=== PATIENT | male | born 1945 | race Caucasian/White ===

== ENCOUNTER → 2016-08-01 | Outpatient (CLI) | payer OTHER ==
[~2016-08-01] MED LIST: ANDROGEL1.62% TOP; ASPIRIN 81M81 MG/TA2 PO; B-121000 MCG PO; CAPSAICIN0.025% TOP; CENTRUM SILVER1 TAB PO; DESYREL 50MG50 MG PO; EFFEXOR 3737.5 MG/TA PO; FERROUS GL325 MG/TAB PO; GLUCOPHAGE1000 MG PO; LANTUS100 U/ML SQ; LIPITOR 10MG10 MG PO; LYRICA 75MG CAP75 MG PO; MINIPRESS2 MG PO; NIACIN 100100 MG/TAB PO; NIACIN FLUSH F400 MG PO; NITROSTAT0.4 MG/TAB SL; NIZORAL SHAMPO120 M1 TP; NORVASC 10MG10 MG PO; NOVOLOG 100U100 U/M1 SQ; PHARMASSURE MA500 MG PO; PROTONIX 40MG T40 MG PO; TOPROL XL 25MG25 MG PO; UROXATRAL10 M1 PO; VITAMIN D 1001000 IU PO; VITAMINC1000TA PO; ZYRTEC 10MG10 MG PO
== END ==
LOC: COL.RAD 07:24
DX: J32.8 Other chronic sinusitis (principal); M50.022 Cervical disc disorder at C5-C6 level with myelopathy; M25.78 Osteophyte, vertebrae; R26.89 Other abnormalities of gait and mobility; Z87.828 Personal history of other (healed) physical injury and trauma

== ENCOUNTER → 2016-10-16 | Outpatient (CLI) | payer OTHER ==
[~2016-10-16] VITALS: Ht 175.3 cm; Wt 98.7 kg
[2016-10-16 11:19] VITALS: BP 126/83; PULSE 79
[2016-10-16 12:06] VITALS: BP 143/80; PULSE 104
[2016-10-16 12:08] VITALS: BP 146/80; PULSE 91
[2016-10-16 12:09] VITALS: BP 131/77; PULSE 89
== END ==
LOC: COL.CARD 10:41
DX: Z01.818 Encounter for other preprocedural examination (principal); I25.10 Atherosclerotic heart disease of native coronary artery without angina pectoris
CPT/HCPCS: A9502; J2785

== ENCOUNTER 2019-03-30 12:09 | Emergency (ER) | payer OTHER ==
[~2019-03-30] VITALS: Ht 172.7 cm; Wt 96.4 kg
[2019-03-30 12:17] VITALS: BP 137/61
[2019-03-30] MEDS ORDERED: METOZOLV ODT10 MG (12:34)
[2019-03-30 13:24] VITALS: PULSE 81; TEMP 98.2
== END 2019-03-30 13:25 | disposition home or self-care (01) ==
LOC: COL.ER 12:09
DX: S61.411A Laceration without foreign body of right hand, initial encounter (principal); I10 Essential (primary) hypertension; E11.9 Type 2 diabetes mellitus without complications; Z88.0 Allergy status to penicillin; Z88.8 Allergy status to other drugs, medicaments and biological substances; Z79.82 Long term (current) use of aspirin; Z79.4 Long term (current) use of insulin; W25.XXXA Contact with sharp glass, initial encounter

== ENCOUNTER → 2019-04-10 | Outpatient (CLI) | payer OTHER ==
[~2019-04-10] MED LIST changes: +METOZOLV ODT10 MG
[2019-04-10 11:40] VITALS: BP 119/74; PULSE 97; TEMP 96.9
== END ==
LOC: COL.ER 11:20
DX: S61.411D Laceration without foreign body of right hand, subsequent encounter (principal); X58.XXXD Exposure to other specified factors, subsequent encounter

== ENCOUNTER 2019-08-29 21:04 | Emergency (ER) | payer OTHER ==
[~2019-08-29] VITALS: Ht 175.3 cm; Wt 88.2 kg
[2019-08-29 21:08] VITALS: TEMP 97.5
[2019-08-29 23:25] VITALS: BP 154/83; PULSE 89
== END 2019-08-29 23:24 | disposition home or self-care (01) ==
LOC: COL.ER 21:04
DX: T49.6X1A Poisoning by otorhinolaryngological drugs and preparations, accidental (unintentional), initial encounter (principal); T26.12XA Burn of cornea and conjunctival sac, left eye, initial encounter; S05.02XA Injury of conjunctiva and corneal abrasion without foreign body, left eye, initial encounter; E11.9 Type 2 diabetes mellitus without complications; I10 Essential (primary) hypertension; F43.10 Post-traumatic stress disorder, unspecified; Z79.4 Long term (current) use of insulin; Z79.82 Long term (current) use of aspirin
CPT/HCPCS: J7040

== ENCOUNTER 2020-09-01 14:20 | Emergency (ER) | payer OTHER ==
[~2020-09-01] VITALS: Ht 175.3 cm; Wt 88.2 kg
[2020-09-01 14:30] VITALS: TEMP 97.8
[2020-09-01 15:28] LABS: BASO % 0.4 % (0.0-2.0); EOS # 0.1 (0.0-0.7); EOS % 1.3 % (0-4.0); GRAN # 3.3 (1.4-6.5); HEMATOCRIT 41.9 % (42.0-52.0); HEMOGLOBIN 14.4 g/dl (13.5-18.0); LYMPH # 1.5 (1.2-3.4); LYMPH % 26.5 % (20.0-51.0); MEAN CELL VOLUME 87 fl (80.0-100.0); MEAN CORPUSCULAR HEMOGLOBIN 30 pg (27.0-31.0); MEAN CORPUSCULAR HGB CONC 34 g/dl (33.0-37.0); MEAN PLATELET VOLUME 12.1 fl (7.4-10.4); MONO # 0.6 (0.1-0.6); MONO % 11.3 % (1.7-9.3); PLATELET COUNT 190 K/mm3 (130-400); RED BLOOD COUNT 4.83 M/mm3 (4.20-5.60); REDCELL DISTRIBUTION WIDTH-CV 12.7 % (11.5-14.5)
[2020-09-01 15:41] LABS: ALBUMIN 4.2 gm/dL (3.5-5.0); BILIRUBIN,TOTAL 0.5 mg/dL (0.0-1.0); CALCIUM 9.6 mg/dL (8.4-10.2); CREATININE, serum 0.73 (0.66-1.25); POTASSIUM 4.9 mmol/L (3.4-5.0); TOTAL PROTEIN 8.2 gm/dL (6.4-8.2)
[2020-09-01 15:52] LABS: TROPONIN-I 0.012 ng/mL (0.000-0.035)
[2020-09-01 19:20] VITALS: BP 132/82; PULSE 84
== END 2020-09-01 19:30 | disposition home or self-care (01) ==
LOC: COL.ER 14:20
PROVIDERS: Emergency Medicine
DX: R07.89 Other chest pain (principal); I25.10 Atherosclerotic heart disease of native coronary artery without angina pectoris; I10 Essential (primary) hypertension; E11.9 Type 2 diabetes mellitus without complications; Z88.0 Allergy status to penicillin; Z88.8 Allergy status to other drugs, medicaments and biological substances; Z88.6 Allergy status to analgesic agent; Z79.82 Long term (current) use of aspirin; Z79.4 Long term (current) use of insulin

== ENCOUNTER 2023-05-10 08:30 | Outpatient (RCR) | payer OTHER ==
[~2023-05-10 08:30] MED LIST changes: +DETROL LA4 PO; +EFFEXOR-XR150 MG PO; +FLOMAX 0.40.4 MG/CAP PO; +INSULIN GL100 UNIT/2 SQ; +IRON TABLETS325 MG PO; +LIDO4; +LIPITOR20 MG PO; +LOPRESSOR 225 MG/TAB PO; +MAG-OX 400400 MG/TAB PO; +MOBIC15 MG PO; +PERIACTIN 4MG TA4 MG PO; +PROSCAR 5MG5 MG PO; +REMERON 15M15 MG/TA1 PO; +VICTOZA6 MG/ML SQ
== END 2023-05-12 | disposition home or self-care (01) ==
LOC: WSOT
DX: M19.032 Primary osteoarthritis, left wrist (principal)

== ENCOUNTER 2023-05-27 09:00 | Outpatient (RCR) | payer OTHER | END 2023-06-12 | disposition home or self-care (01) | LOC: WSOT | DX: M25.532 Pain in left wrist (principal) ==

== ENCOUNTER 2023-09-02 13:12 | Inpatient (IN) | payer MEDICARE, OTHER ==
[~2023-09-02] VITALS: Ht 175.3 cm; Wt 81.3 kg
[2023-09-02 15:35] VITALS: BP 137/79; PULSE 73; TEMP 97.7
[2023-09-02] MEDS ORDERED: LOVENOX 4040 MG/0.4 SQ (15:36)
[2023-09-02] MEDS ORDERED: HUMALOG PEN100 U/ML SQ (15:39)
[2023-09-02] MEDS ORDERED: SENNA-LAX8.6 MG PO (15:40)
[2023-09-02] MEDS ORDERED: Acetaminophen 325 MG TAB PO PRN (15:45)
[2023-09-02] MEDS ORDERED: Naloxone 0.4 MG/ML VIAL IV PRN (15:45)
[2023-09-02] MEDS ORDERED: Polyethylene Glycol 3350 17 GM PDS PO PRN (15:45)
[2023-09-02] MEDS ORDERED: TYLENOL 500MG500 MG PO (15:45)
[2023-09-02] MEDS ORDERED: Docusate Sodium 100 MG CAP PO PRN (15:45)
[2023-09-02] MEDS ORDERED: Sennosides/Docusate 8.6-50 MG TAB PO PRN (15:45)
[2023-09-02] MEDS ORDERED: ASPIRIN E.C. 8181 MG PO (15:46)
[2023-09-02] MEDS ORDERED: TEMOVATE0.05% TP (15:48)
[2023-09-02] MEDS ORDERED: FLEXERIL 1010 MG/TAB PO (15:49)
[2023-09-02] MEDS ORDERED: VOLTAREN GEL 1%1 TU TP (15:52)
[2023-09-02] MEDS ORDERED: BENADRYL25 M2 PO (15:53)
[2023-09-02] MEDS ORDERED: EUCERIN1 CRE TOP (15:54)
[2023-09-02] MEDS ORDERED: PEPCID 20MG TAB20 MG PO (15:56)
[2023-09-02] MEDS ORDERED: CVS GLUCOSE BIT1 CTB (15:58)
[2023-09-02] MEDS ORDERED: NORCO 325 MG-51 TAB PO (15:59)
[2023-09-02] MEDS ORDERED: VITAMIN B12 781 TAB PO (16:06)
[2023-09-02 16:12] VITALS: BP_SYST 137
[2023-09-02] MEDS ORDERED: diphenhydrAMINE 25 MG CAP PO PRN (16:45)
[2023-09-02] MEDS ORDERED: Cyclobenzaprine 10 MG TAB PO PRN (16:45)
[2023-09-02] MEDS ORDERED: Glucagon 1 MG VIAL IM PRN (17:00)
[2023-09-02] MEDS ORDERED: Insulin Lispro (HumaLOG) SQ SCH ×2 (17:00)
[2023-09-02] MEDS ORDERED: Dextrose 50% Water 25 GM/50 ML SYRINGE IV PRN (17:00)
[2023-09-02] MEDS ORDERED: Dextrose (Glucose) 15 GM (4 x 3.75 GM) Chewable TABLET PACK PO PRN (17:00)
--- NOTE | 2023-09-02 19:30 | NUR ---
report received from asha luna. pt resting in bed watching tv. pt denies pain. fall precautions in place. call light in reach. all needs met at this time.
[2023-09-02] MEDS ORDERED: Metoprolol Tartrate 25 MG TAB PO SCH (21:00)
[2023-09-02] MEDS ORDERED: CLOBETASOL 0.05% TP PRN (21:00)
[2023-09-02] MEDS ORDERED: Atorvastatin 20 MG TAB PO SCH (21:00)
[2023-09-02] MEDS ORDERED: metFORMIN 500 MG TAB PO SCH (21:00)
[2023-09-02] MEDS ORDERED: Cyproheptadine 4 MG TAB PO PRN (21:00)
[2023-09-02] MEDS ORDERED: Magnesium Oxide 400 MG TAB PO SCH (21:00)
[2023-09-02] MEDS ORDERED: Insulin Glargine-ygfn (Lantus) SQ SCH (21:00)
--- NOTE | 2023-09-02 21:08 | NUR ---
shift assessment complete, see documentation. pt tolerated hs meds well. pt assisted in bedtime routine. fall precautions in place. call light in reach. all needs met at this time.
[2023-09-02 21:10] VITALS: BP_SYST 137
[2023-09-03 01:02] VITALS: BP_SYST 137
[2023-09-03 05:34] VITALS: BP 151/88; PULSE 100; TEMP 98.1
--- NOTE | 2023-09-03 08:37 | NUR ---
PT SITTING ON EDGE OF BED, EATING BREAKFAST, ALERT AND ORIENTEDX4. RATES PAIN 7/10 WHEN UP AND WALKING. REQUESTED PAIN PILL BEFORE THERAPY STARTS. PT GOT UP TO BATHROOM AND HAD A SMALL BOWEL MOVEMNET BUT STILL FEELS CONSTIPATED. GAVE MIRALAX AND STOOL SOFTNER.ASSESSED PT AND GAVE MORNING MEDS. CALL LIGHT WITHIN REACH.
[2023-09-03] MEDS ORDERED: Cyanocobalamin (Vit B-12) 1,000 MCG TAB PO SCH (09:00)
[2023-09-03] MEDS ORDERED: Ferrous Sulfate 325 MG TAB PO SCH (09:00)
--- NOTE | 2023-09-03 14:52 | NUR ---
Principal Examiner met with patient to complete discharge planning. Patient lying on his bed stating he's very tired and hot from completing his therapy today. Patient verified that he lives in [place] with his Roseanne ([phone]). He lists his son Lake ([phone]) as contact and states he relies on Lake a lot. Patient identified his and his son as DPOA. Patient goes to [facility] for medical care and is on Red Team. He uses [facility] and [facility] as needed. Pt has multiple DME: 5 canes, rollator walker, FWW, gripper, wheelchair and quad cane. Patient reports he has had many falls at home due to lack of balance. He states he stays busy working in the yard and helping to build decks. Patient states he has 2-4 steps into his home, with his house being a single story home. He has his office in his basement and is hopeful he will be able to access it soon. Discussed discharge recommendations at this time being home with HH. Patient stated he doesn't want to be home bound and would prefer OP therapy. [facility] Discharge plan: Home with OP therapy
[2023-09-03 18:37] VITALS: BP 138/79; PULSE 91; TEMP 98
--- NOTE | 2023-09-03 19:11 | NUR ---
report received from asha luna. pt resting in bed with at bedside. pt denies pain. fall precautions in place. call light in reach. all needs met at this time.
[2023-09-03 19:12] VITALS: BP_SYST 138
[2023-09-03] MEDS ORDERED: Finasteride 5 MG TAB PO SCH (21:00)
--- NOTE | 2023-09-04 00:07 | NUR ---
shift assessment complete, see documentation. pt tolerated hs meds well. pt denies pain. fall precautions in place. call light in reach. all needs met at this time.
[2023-09-04 05:33] VITALS: BP 147/84; PULSE 78; TEMP 97.7
[2023-09-04 07:00] VITALS: BP_SYST 147
--- NOTE | 2023-09-04 07:56 | NUR ---
Pt is sitting up in bed getting dressed with help of PCT. Pt is A&Ox4. VSS. S1S2. Clear lung sounds on RA. ABD is rounded, soft, non-tender with audible bowel sounds. Palpable pulses in all extremities with normal strength. Pt reports history of neuropathy. Pt reports pain in L hip 2/10 - sharp when moving. Pt requested pain meds prior to therapy this AM at 0815. Per Pt, pain escalates during therapy sessions. Pt denies headache, dizziness, n/v. pt ordered breakfast. No further needs at this time. Call light in reach and bed alarm on.
--- NOTE | 2023-09-04 10:53 | NUR ---
Pt reported mild ABD cramping. Per Pt, thinks cramps from eating breakfast too fast. Pt did not want anything at this time. told Pt to keep nurse informed if cramping continues. Pt understood.
--- NOTE | 2023-09-04 12:30 | NUR ---
Pt returned from PT session. Called for assistance to go to bathroom. Pt ambulated with walker and gait belt well. Pt had small BM. Pt reported urination was difficult to begin and small burning sensation when urinating. Pt stated the burning started earlier this AM. Set Pt up with lunch tray at side of bed. Call light in reach and bed alarm on.
--- NOTE | 2023-09-04 14:41 | NUR ---
SW attended team conference this morning. Met with patient to review notes of team conference and discuss upcoming discharge planned for 09/09. Reiterated need for patient to use walker when he is up to ensure safety. Discussed patient resuming OP physical therapy after discharge. SW called patient's to schedule family meeting. Scheduled meeting for Tuesday 09/05 at 0930. Discharge plan: home with OP therapy
--- NOTE | 2023-09-04 14:53 | NUR ---
Pt ambulated from bed to bathroom back to bed. Pt voided - clear, yellow urine. Pt denies pain. Family in room visiting. Pt laying in bed with call light in reach and bed alarm on.
[2023-09-04 17:00] VITALS: BP 124/76; PULSE 93; TEMP 98
--- NOTE | 2023-09-04 17:14 | NUR ---
Pt ambulated from bathroom to bed. Pt reporting burning while urinating. Pt states burning is only at beginning of stream then dies down. Pt states pain is present in his L hip when moving. Administered PM meds as per EMAR. No further needs at this time. Call light in reach and bed alarm on.
--- NOTE | 2023-09-04 18:00 | NUR ---
Spoke with Dr Hector regarding Pt's burning while voiding. Orders for UA to be collected.
--- NOTE | 2023-09-04 18:59 | NUR ---
RECEIVED CHANGE OF SHIFT REPORT FROM DAY SHIFT NURSE. PATIENT RESTING IN BED, EXIT ALARM ON, CALL LIGHT IN REACH. NO NEEDS VOICED AT TIME OF REPORT.
[2023-09-04 19:10] VITALS: BP_SYST 124
[2023-09-04 20:06] LABS: COLLECTION METHOD CLEAN CATCH
[2023-09-04 20:07] LABS: URINE BLOOD 2+ (NEGATIVE); URINE COLOR YELLOW (YELLOW); URINE GLUCOSE NEGATIVE (NEGATIVE); URINE KETONE 1+ (NEGATIVE); URINE NITRATE NEGATIVE (NEGATIVE); URINE PROTEIN(semi-quant) 1+ (NEGATIVE); URINE UROBILINOGEN 0.2 E.U/dL (0.2-1.0)
[2023-09-04 20:08] LABS: URINE APPEARANCE Cloudy (CLEAR/HAZY)
[2023-09-04 21:21] VITALS: BP 133/82; PULSE 93
--- NOTE | 2023-09-05 00:43 | NUR ---
Requested and given pain med for left hip/leg pain, see MAR for med given for level 8/10 pain. Patient up to bathroom, then back to bed, with exit alarm on, call light in reach. No other needs voiced at this time.
[2023-09-05 05:28] VITALS: BP 132/77; PULSE 83; TEMP 97.8
[2023-09-05 07:13] VITALS: BP_SYST 132
--- NOTE | 2023-09-05 07:14 | NUR ---
Shift report received from night RN. No events reported overnight. Pt sleeping supine in bed w/ even & unlabored resps. Call light in reach. Bed alarm on.
--- NOTE | 2023-09-05 07:16 | NUR ---
CHANGE OF SHIFT REPORT GIVEN TO DAY SHIFT NURSEJOYA
--- NOTE | 2023-09-05 07:31 | NUR ---
Pt sitting up on EOB eating breakfast independently. Denies the need for pain medication at this time. Would like pain medication prior to Group Therapy this morning. Other needs denied. Call light in reach. Bed alarm on.
--- NOTE | 2023-09-05 09:24 | NUR ---
Pt ambulating off unit w/ PT.
--- NOTE | 2023-09-05 10:02 | NUR ---
[place] given per PRN order.
--- NOTE | 2023-09-05 10:12 | NUR ---
Pt off unit for Group Therapy.
--- NOTE | 2023-09-05 11:59 | NUR ---
Pt sitting in recliner. Pt supervised as he stood w/ supervision to FWW. Gait steady as pt ambulated to the bathroom. Pt reporting LLE feels "stiff & sore". Too soon for next dose of pain medication. Flexeril given per PRN order.
--- NOTE | 2023-09-05 13:01 | NUR ---
Pt off unit w/ PT.
--- NOTE | 2023-09-05 15:12 | NUR ---
Admission QIM scores were reviewed by the team. Code of 3 chosen for putting on/taking off footwear was determined by team discussion to be the most usual performance before interventions for this patient during the assessment period. Code of 88 chosen for walking 150 feet was determined by team discussion to be the most usual performance before interventions for this patient during the assessment period.--Heather Ferraro, PD
[2023-09-05] MEDS ORDERED: Ciprofloxacin 500 MG TAB PO SCH (16:07)
--- NOTE | 2023-09-05 16:18 | NUR ---
Pt up to ambulate to the bathroom then back to bed after toileting. Pt denies the need for pain medication at this time & stated "maybe later". Hospitalist team at the bedside. New order for Cipro BID received w/ urine cx results pending. Pt has had no complaints of dysuria throughout shift so far. Will continue to monitor.
--- NOTE | 2023-09-05 16:41 | NUR ---
Pt agreeable to applying Voltaren to L hip. Voltaren applied per PRN order.
--- NOTE | 2023-09-05 17:20 | NUR ---
Min asst provided for pt to stand to recliner. SBA while ambulating w/ FWW from bed to recliner. Pt reporting L hip pain. Pain medications offered & declined at this time. Other needs denied. Call light in reach. Chair alarm in place. in the room.
[2023-09-05 17:21] VITALS: BP 141/75; PULSE 84; TEMP 97.6
--- NOTE | 2023-09-05 17:54 | NUR ---
1630 Blood sugar 179 mg/dL. Result not uploading to [employer].
--- NOTE | 2023-09-05 18:14 | NUR ---
Pt sitting up in recliner eating dinner independently. Initial dose Cipro given w/ meal. Reviewed drug purpose & side effects w/ pt & Lexicomp drug handout given. Pt recalls taking Cipro in the past & had no questions.
--- NOTE | 2023-09-05 19:00 | NUR ---
RECEIVED CHANGE OF SHIFT REPORT FROM DAY SHIFT NURSE.
[2023-09-05 19:29] VITALS: BP_SYST 141
[2023-09-05 21:07] VITALS: BP 139/75; PULSE 90
--- NOTE | 2023-09-05 23:32 | NUR ---
PATIENT REPORTS HAD LOOSE BM EARLIER TODAY, REFUSED HS STOOL SOFTENERS.
--- NOTE | 2023-09-06 05:26 | NUR ---
PATIENT COMPLAINS OF LEFT HIP MUSCLE SORENESS, SEE MAR FOR MED GIVEN. NO OTHER NEEDS REPORTED AT THIS TIME.
[2023-09-06 05:30] VITALS: BP 143/83; PULSE 71; TEMP 97.6
[2023-09-06 06:43] VITALS: BP_SYST 143
--- NOTE | 2023-09-06 06:48 | NUR ---
Pt sleeping in bed w/ even & unlabored resps. Call light in reach. Bed alarm on.
--- NOTE | 2023-09-06 06:53 | NUR ---
Shift report received from night RN. No events reported overnight.
--- NOTE | 2023-09-06 06:57 | NUR ---
Change of shift report given to day shift nurseCornelius.
--- NOTE | 2023-09-06 08:01 | NUR ---
Pt up to recliner for breakfast. Pt reporting L hip pain. Pain medication & Voltaren offered & declined by pt. Pt would like to wait unit closer to PT session this morning. Will continue to monitor. Other needs denied. Call light in reach. Chair alarm in place.
--- NOTE | 2023-09-06 09:35 | NUR ---
Initial visit; Patient thanked for looking in on him and stated he is a [place] and had about six fellow Gideons come to visit yesterday, offering their support and prayers. wished Louis well and will keep him in her prayers, stating that she knows he has wonderful support and prayers.
--- NOTE | 2023-09-06 09:49 | NUR ---
Omar given per PRN order for L hip pain. Pt up to ambulate off unit w/ PT.
--- NOTE | 2023-09-06 10:16 | NUR ---
Family meeting conducted w/ pt & . Also present was the MD, PT, & OT. MD talked about medical aspects of his care, like pain & bowel movements. Therapists also talked about how pt has been doing from a functional level. Pt/Family stated they understood. Informed them of a d/c for 09/06/23, w/ recommendations for home & HH PT/OT. The pt & family asked questions which the team answered.
--- NOTE | 2023-09-06 12:59 | NUR ---
Pt up to ambulate off unit w/ PT.
--- NOTE | 2023-09-06 14:08 | NUR ---
Hospitalist at the bedside to see pt. Diabetic consultation ordered. Called number listed on consult - voice mail left requesting a callback.
--- NOTE | 2023-09-06 15:08 | NUR ---
Pt sitting up in bed visiting w/ his . Pain medication given approx 30 minutes ago for pain level of 8. Denies any needs at this time. Call light in reach. Bed alarm on.
[2023-09-06 17:27] VITALS: BP 129/75; PULSE 98; TEMP 98
--- NOTE | 2023-09-06 18:21 | NUR ---
Pt sitting up in bed eating dinner independently. Denies any needs. Call light in reach. Bed alarm on.
[2023-09-06 19:12] VITALS: BP_SYST 129
--- NOTE | 2023-09-06 21:09 | NUR ---
Shift assessment complete. Assisted to restroom with walker. Reports left hip pain as 2/10 and describes it as a soreness. Denies any shortness of breath, chest pain, nausea. Call light is within reach. Bed locked and in low position
[2023-09-07 06:02] VITALS: BP 152/73; BP_SYST 153; PULSE 80; TEMP 97.8
[2023-09-07 07:32] VITALS: BP_SYST 152
[2023-09-07 17:32] VITALS: BP 130/75; PULSE 85; TEMP 97.7
[2023-09-07 20:00] VITALS: BP_SYST 130
--- NOTE | 2023-09-07 20:00 | NUR ---
UPON SHIFT ASSESSMENT, SERENITY WAS AXO X 4. HE RATES HIS LT HIP PAIN 3/10 AND REQUESTED VOLTARN GEL AND REFUSED PRN PO PAIN MEDS. LT HIP SHOWS MILD EDEMA, DISTAL PULSES GOOD, COLOR WNL. VS ARE WNL. BED ALARM FOLLOW UP SPECIALIST LIGHT WITHIN REACH.
--- NOTE | 2023-09-08 01:30 | NUR ---
PATIENT C/O 01/20 LT HIP PAIN. ICE PACK AND PRN NORCO PROVIDED.
[2023-09-08 05:42] VITALS: BP 155/78; PULSE 68; TEMP 97.7
[2023-09-08 08:13] VITALS: BP_SYST 155
--- NOTE | 2023-09-08 08:23 | NUR ---
patient alert and oriented x4. patient assisted out of bed to bathroom back to seat down. chair alarm on. Patient reported pain at 1/10 rating, did not want any prn medication for pain. patient reports slleping through the night and is well rested. patient call light within reach. chair alrm in place.
[2023-09-08 11:00] VITALS: BP 149/78; PULSE 73; TEMP 98.1
[2023-09-08 18:00] VITALS: BP 152/84; PULSE 87; TEMP 97.4
[2023-09-08 19:00] VITALS: BP_SYST 152
[2023-09-09 05:33] VITALS: BP 149/78; PULSE 100; TEMP 97.6
[2023-09-09 06:41] VITALS: BP_SYST 149
--- NOTE | 2023-09-09 06:45 | NUR ---
Shift report received from night RN. No events reported overnight. Pt reports receiving pain medication earlier this morning. Denies any needs at this time. Call light in reach. Bed alarm on.
--- NOTE | 2023-09-09 10:50 | NUR ---
Pt ambulating off unit w/ OT.
--- NOTE | 2023-09-09 12:11 | NUR ---
Pt sitting up in wheelchair eating lunch. Pt rating pain level at "11". Eudora given per PRN order. Other needs denied. Call light in reach. Chair alarm in place.
--- NOTE | 2023-09-09 16:54 | NUR ---
09/[id number]-DIABETES EDUCATION CONSULT. 78 YO MALE T2DM. DIAGNOSED IN 1984. PATIENT STATES HIS HOME MEDICATION REGIMEN IS: 15 UNITS LANTUS IN AM, 15 UNITS LANTUS IN THE EVENING AND 10 UNITS OF HUMALOG IN THE EVENING WELL. HE STATES HE PREVIOUSLY WAS GOING TO [facility] IN [place] MULTIPLE TIMES A YEAR FOR MANAGEMENT OF HIS INSULIN AND DM MEDICATIONS. THIS WAS SET UP THROUGH THE IN 'RED TEAM' WHICH HE STATES IS HIS PRIMARY PHYSICIAN/PROVIDER. THIS PATIENT STATES THAT AROUND 2 YEARS AGO THE IN DISCONTINUED SETTING UP THESE ENDOCRINOLOGY VISITS FOR HIM AND HE DOES NOT KNOW WHY. PATIENT NEEDS A REFERRAL TO AN CHEMICAL PROCESSING SUPERVISOR, IDEALLY AT [facility] IN [place] HE WAS ALREADY A PATIENT OF THEIRS PREVIOUSLY. RECOMMEND REFERRAL AT TIME OF DISCHARGE. THIS PATIENT LIKELY NEEDS AN INCREASE IN HIS INSULIN DOSAGE WHICH SHOULD BE MONITORED BY ENDOCRINOLOGY. PATIENT WAS SENT DEXCOM G7 CGM SUPPLIES FROM THE IN AND HE HAD THESE WITH HIM TODAY IN HIS ROOM. I ASSISTED THIS PATIENT WITH SETTING UP THE APPLICATION ON HIS PHONE WELL ON HIS TRANSMITTER, AND HELPED HIM PLACE HIS FIRST SENSOR. I EXPLAINED THIS WILL MEASURE HIS BG APPROXIMATELY EVERY 5 MINUTES, BUT WHILE HE IS IN THE HOSPITAL, BG READINGS WILL NEED TO CONTINUE TO BE TAKEN VIA FINGERSTICK OR LAB FOR PURPOSES OF SLIDING SCALE DOSES THIS IS MOST ACCURATE. PATIENT IS AGREEABLE. PATIENT STATES HE HAS SOME NEUROPATHY IN HIS FEET. PATIENT STATES HE WOULD LIKE TO FOLLOW UP WITH ME FOR OUTPATIENT DIABETES EDUCATION AND ESPECIALLY GUIDANCE ON HIS DIET AND EATING HABITS. I WILL ATTEMPT TO OBTAIN A REFERRAL FROM HIS PCP BASED ON THE INFORMATION HE GAVE ME. RECOMMEND THAT THE ADMITTING PHYSICIAN PUT OUTPATIENT DIABETES EDUCATION A RECOMMENDATION IN DISCHARGE INSTRUCTIONS. KML,MS,RD,CSSD,LD
[2023-09-09] MEDS ORDERED: HUMALOG PEN100 U/ML SQ (17:43)
[2023-09-09] MEDS ORDERED: NORCO 325 MG-51 TAB PO (17:44)
[2023-09-09 17:47] VITALS: BP 131/82; PULSE 92; TEMP 97.4
[2023-09-09 19:23] VITALS: BP_SYST 131
--- NOTE | 2023-09-09 19:24 | NUR ---
Bedside report received from JOSAFAT Mccord. Pt is awake in wheelchair on electronic device. Pt has no complaints at this time. Call light within reach.
--- NOTE | 2023-09-10 00:24 | NUR ---
Shift assessment completed. VSS. Pt is A&O x4. Bruising to the top of the Lt thigh. Pt reports no pain from bruising. Pt ambulated x2 to bathroom with PCT present with no complications. Call light within reach and fall precautions in place.
[2023-09-10 05:57] VITALS: BP 134/81; PULSE 91; TEMP 98.1
[2023-09-10 08:22] VITALS: BP_SYST 134
--- NOTE | 2023-09-10 08:56 | NUR ---
09/10/23-0850- Outpatient Diabetes Education [place] Robert Dobson APRN/ [place] [facility] [place] attempt to see patient for outpatient diabetes education once we receive a signed referral from his PCP. TRAVIS,MS,RD,CSSD,LD
--- NOTE | 2023-09-10 08:59 | NUR ---
SW met with patient to discuss Medicare IM form. Patient agreeable to discharge and signed form, copy provided and original on chart. Patient stating he needs a FWW due to the one he has at home being from his father in law and not in good condition. Discharge orders and demographic information sent secure email to [facility] for FWW. Discharge plan: home with OP therapy
--- NOTE | 2023-09-10 09:14 | NUR ---
PT RESTING IN WHEELCHAIR WITH NO PAIN AT THIS TIME. A/O X4, STEADY GAIT WITH WALKER, AND ANTICIPATING DISCHARGE TODAY. NO NEEDS AT THIS TIME. WILL CONTINUE TO MONITOR.
[2023-09-10] MEDS ORDERED: HUMALOG100 U/ML SQ (11:06)
[2023-09-10] MEDS ORDERED: INSULIN HUMA100 U/ML SQ (11:06)
--- NOTE | 2023-09-10 11:22 | NUR ---
DISCHARGE PROVIDED TO PT AND FAMILY. DISCUSSED FOLLOW UP APPOINTMENTS, NEW MEDICATIONS, AND SIGNS OF HYPO AND HYPERGLYCEMIA. PT PROVIDED RETURN DEMONSTRATION OF HOW TO USE SLIDING SCALE INSULIN. DISCUSSED WITH DR GONZALEZ OF NEED TO SEND PRESCRIPTION TO [place] [facility]. PT AND BELONGINGS ESCORTED OUT OF BUILDING AT THIS TIME.
== END 2023-09-10 10:25 | disposition home or self-care (01) | DRG 560 ==
PROVIDERS: Internal Medicine; ADMIT Physical Medicine & Rehabilitation Sports Medicine
DX: S72.145D Nondisplaced intertrochanteric fracture of left femur, subsequent encounter for closed fracture with routine healing (principal); N39.0 Urinary tract infection, site not specified; R26.89 Other abnormalities of gait and mobility; E11.42 Type 2 diabetes mellitus with diabetic polyneuropathy; K21.9 Gastro-esophageal reflux disease without esophagitis; G47.33 Obstructive sleep apnea (adult) (pediatric); F32.9 Major depressive disorder, single episode, unspecified; E78.5 Hyperlipidemia, unspecified; R35.0 Frequency of micturition; M25.512 Pain in left shoulder; N40.3 Nodular prostate with lower urinary tract symptoms; I10 Essential (primary) hypertension; I25.10 Atherosclerotic heart disease of native coronary artery without angina pectoris; M97.02XD Periprosthetic fracture around internal prosthetic left hip joint, subsequent encounter; Z96.642 Presence of left artificial hip joint; Z79.82 Long term (current) use of aspirin; Z79.899 Other long term (current) drug therapy; Z79.4 Long term (current) use of insulin; Z79.84 Long term (current) use of oral hypoglycemic drugs; Z79.890 Hormone replacement therapy; W11.XXXD Fall on and from ladder, subsequent encounter; Z74.09 Other reduced mobility
CPT/HCPCS: A9270; A9284; J1650; J1815